=== PATIENT | female | born 1965 | race Caucasian/White ===

== ENCOUNTER 2022-11-06 09:12 | Emergency (ER) | payer OTHER, SELFPAY ==
--- NOTE | ~2022-11-06 | US_ITS ---
EXAMINATION: US venous doppler LE RT DATE: 11/06/2022 10:08 INDICATION: Right calf pain. TECHNIQUE: Grayscale ultrasound images without and with compression and Doppler ultrasound images of the right lower extremity veins were obtained. COMPARISON: None. FINDINGS: The visualized portions of right common femoral vein, profunda (deep) femoral vein, femoral vein, pop liteal vein, peroneal veins, posterior tibial veins, and greater saphenous vein outflow are patent. IMPRESSION: 1. No deep venous thrombosis. Reviewed, dictated and finalized at location A.
[2022-11-06 09:20] VITALS: BP 146/74; PULSE 61; RESP 16; TEMP 36.8; O2SAT 99
[2022-11-06] MEDS: Please add drug allergy info to patient profile. 1 EACH XX (10:42)
[2022-11-06] MEDS: KETOROLAC 30 MG/ML VIAL (*BKC) IM (10:44)
[2022-11-06] MEDS: CYCLOBENZAPRINE HCL 10 MG TABLET PO (10:45)
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
[2022-11-06 12:04] LABS: Alanine Aminotransferase 26 U/L (6-35); Albumin Level 5.1 g/dL (3.5-5.1); Alkaline Phosphatase 61 U/L (38-126); Anion Gap 9 mmol/L (8-16); Aspartate Amino Transferase 26 U/L (14-36); Bilirubin,Total 0.8 mg/dL (0.2-1.3); Blood Urea Nitrogen 22 mg/dL (7-17); Carbon Dioxide 27 mmol/L (22-30); Chloride 99 mmol/L (98-107); Creatine Kinase 75 U/L (30-135); Estimated CRCL calculation 63 ml/min; Estimated Glomerular Filt Rate > 60; Glucose 106 mg/dL (65-110); Potassium 4.1 mmol/L (3.4-5.0); Sodium 135 mmol/L (137-145)
== END 2022-11-06 11:32 | disposition home or self-care (01) ==
PROVIDERS: Emergency Provider Preventive Medicine Aerospace Medicine
DX: M79.661 Pain in right lower leg (principal); M54.31 Sciatica, right side; Z87.828 Personal history of other (healed) physical injury and trauma
CPT/HCPCS: 36415; 80053; 82550; 93971; 96372; 99284; A9270; J1885

== ENCOUNTER 2024-02-18 16:09 | Outpatient (NON) | payer OTHER, SELFPAY ==
[2024-02-18 16:33] LABS: Add Urine Microscopic? NO; Appearance Urine Clear (Clear); Bilirubin Urine Negative (Negative); Blood Urine Negative (Negative); Color Urine Light Yellow (Yellow); Glucose Urine UA Negative (Negative); Ketones Urine Negative (Negative); Leukocyte Esterase Ur Negative LEU/UL (Negative); Nitrate Urine Negative (Negative); Protein Urine Negative (Negative); Specific Grav Ur >= 1.030 (1.010-1.020); Urobilinogen Urine 0.2 mg/dL (0.2-1.0)
== END 2024-02-18 16:10 | disposition home or self-care (01) ==
LOC: CHSLAB 16:10
PROVIDERS: PCP Nurse Practitioner Family; Visit Provider Nurse Practitioner Family
DX: R10.819 Abdominal tenderness, unspecified site (principal)
CPT/HCPCS: 81003

== ENCOUNTER 2024-02-25 07:19 | Outpatient (CLI) | payer OTHER, SELFPAY ==
--- NOTE | ~2024-02-25 | US_ITS ---
US abdomen complete EXAMINATION: US Abdomen Complete INDICATION: Lower abdominal pain PROCEDURE: Realtime High Resolution abdomen ultrasound. COMPARISON: No prior studies for comparison FINDINGS: Gallbladder within normal limits. No gallstones, pericholecystic fluid, gallbladder wall t hickening or biliary dilatation. Common bile duct measures 3 mm. Liver echotexture within normal limits without focal mass. Pancreas within normal limits. Pancreati c tail is obscured by bowel gas. Spleen is unremarkeable. Renal echotexture is within normal limits bilaterally without hydronephrosis, contour deforming mass or renal stone. Right kidney measures 10.2 cm. Left kidney measures 10.3 cm. Visualized aspects of the aorta and IVC are within normal limits. Portal vein is patent. No sonograph ic Gutierrez's sign indicated by the technologist. IMPRESSION: 1: Normal abdominal ultrasound. Reviewed, dictated and finalized at location A. 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
--- NOTE | ~2024-02-25 | US_ITS ---
EXAMINATION: US soft tissue groin RT DATE: 02/25/2024 07:48 INDICATION: Abdominal tenderness, unspecified site. TECHNIQUE: Multiple grayscale and Doppler ultrasound images of the right groin were obtained. COMPARISON: None FINDINGS: There are normal lymph nodes in the right inguinal region. IMPRESSION: 1. No abnormal mass or lymphadenopathy in the patient's area of concern in right inguinal region. 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 No abnormal mass or lymphadenopathy in the patient's area of concern in righ t inguinal region.
== END 2024-02-25 07:20 | disposition home or self-care (01) ==
PROVIDERS: PCP Family Medicine; Visit Provider Nurse Practitioner Family
DX: R19.09 Other intra-abdominal and pelvic swelling, mass and lump (principal); R10.819 Abdominal tenderness, unspecified site
CPT/HCPCS: 76700; 76882

== ENCOUNTER 2024-03-27 14:22 | Outpatient (CLI) | payer OTHER, SELFPAY ==
--- NOTE | ~2024-03-27 | MM_ITS ---
EXAMINATION: MM screening julianne BI w memo HISTORY: Screening TECHNIQUE: Craniocaudal and mediolateral oblique 3-D tomosynthesis images were obtained and synthetic 2-D images were generated. CAD analysis was submitted and interpreted. COMPARISON: Comparison to multiple prior studies sequentially, with oldest reviewed study dated 11/23. BREAST PARENCHYMAL COMPOSITION: Not dense: There are scattered areas of fibroglandular density. FINDINGS: There is no evidence of suspicious mass, calcification, or architectural distortion to sugg est malignancy in either breast. There has been no suspicious interval change. IMPRESSION: 1. No mammographic evidence of malignancy. 2. Recommend routine screening mammography in one year. BI-RADS Category 1: Negative Reviewed, dictated and finalized at location B. 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
--- OUTSIDE RECORDS SUMMARY | 2024-03-27 15:14 | XMS_ITS | Data Portability ---
Author Organization [place] - [employer] , [facility] [place] Address [address] [place] [address] Assessment No assessment recorded. Plan of Treatment Reminders Order Date Submit Date Provider Last Modified By Organization Details Last Modified Time Details Appointments None recorded. Lab None recorded. Referral None recorded. Procedures None recorded. Surgeries None recorded. Imaging None recorded. Medication Orders Augmentin 875 mg-125 mg tablet 2023 024 [id number], [address], [place], [phone], 13:46:44 Patient TargetsNo targets recorded. Patient Instructions Encounter Date Encounter Id Patient Instructions Last Modified By Organization Details Last Modified Time 01/29/2024 [id number] Acute Sinusitis: Care Instructions edahir Not available 01/29/2024 13:46:35 Traveling and Follow-Up: Since you are leaving for [place] soon, ensure you fill the prescription at your [facility] in [place] promptly. If your symptoms persist or worsen during your trip, seek medical attention. Please follow up with us if necessary upon your return. Safe travels! edahir Not available 01/29/2024 13:49:14 Reason for Referral None Reported. Medical Equipment None Reported. Allergies Allergen ID Allergen Name Allergen Category Reaction Reaction Severity Criticality Documentation Date Start Date Code Code System Note Provider Name and Address Organization Details Recorded Time 90706 erythromy kay medicatio n abdominal pain Not available Not available 01/29/2024 4053 [facility] AKILA Perez [address], [place], [address], [facility] 13:44:14 Medications Name Sig Start Date Stop Date Status Note LastModified by Organization Details LastModified Time Augmentin 875 mg-125 mg tablet Take 1 tablet every 12 hours by oral route for 7 days. 024 active Not Available Not Available Not Avai lable Vitals None Recorded Social History None recorded. Functional Status None recorded. Mental Status None recorded. Family History Nothing Reported. Medical History No medical history recorded. Gynecological HistoryNo gynecological history recorded. Obstetrics History GPAL:G 0 P 0 0 0 0 Past Encounters Encounter ID Performer Location Encounter Start Date Encounter Closed Date Diagnosis/Indication Diagnosis SNOMED-CT Code Diagnosis ICD10 Code Diagnosis Note [id number] AKILA Perez [facility] [address] [facility] [place] [address] 01/29/2024 13:40:01 01/29/2024 19:45:05 Acute bacterial sinusitis 89049506 J01.90 MDM- History and examinatio n consistent with acute uncomplica zheng sinusitis. No indication for labs or imaging at this time. No evidence of sepsis, strep pharyngiti s, or pneumonia. Counseled patient/fa kelsea on antibiotic treatment and supportive measures at home. Patient advised to return to clinic or present to ED if symptoms change or worsen. Otherwise follow-up with PCP. This is an audio/vide o visit. Physical examinatio n is limited to visual assessment . Health Concerns Section Related Observation LastModified by Organization Detai ls LastModified Time None Recorded Concern Status LastModified by Organization Details LastModified Time None Recorded Advance Directives Directive None Recorded Payers Encounter Date Sequence Insurance Name Policy Number Policy Nolasco Covered Member ID Nolasco Member ID Guarantor Name 01/29/2024 1 [facility] [id number] Rosey Sorensonkristin [id number] Rosey Blossom 01/29/2024 3 *SELF PAY* [id number] Rosey Blossom [id number] Rosey Sorensonkristin Notes Date Note Type Note Provider Name and Address Organization Details Recorded Time 01/29/2024 text/html Call connected, patient greeted. Patient name, , telephone number, and location verified verbally with the patient. Telemedicine limitations reviewed, answered all questions the patient had about the telehealth interaction, and verbal consent obtained to treat. Clinician attests they are physically located in the following state at the time of visit: [place] The patient also consents to the use of AI scribe technology. CC: Sinus pressure and fatigue HPI: The patient reports the onset of symptoms approximately two weeks ago, following a brief getaway. Initially, they developed a sore throat lasting a couple of days, which resolved on its own. The patient typically experiences a cold following a sore throat, but this did not occur. Instead, they began experiencing sinus pressure on the forehead and face a few days later. The patient traveled to [place] for work, where the warm climate did not exacerbate their symptoms. However, they did experience nasal drainage and recurrent episodes of epistaxis when blowing their nose, likely due to dryness. They applied Vaseline to alleviate nasal dryness, which provided some relief. Upon returning home yesterday, the patient experienced pronounced fatigue and mild nausea attributed to post-nasal drainage. They attempted to manage their symptoms using a neti pot, Tylenol, and ibuprofen, but reported these treatments as ineffective. Despite the symptoms, the patient denies fever and cough. They have been using a humidifier and staying hydrated to manage their condition. No allergies to medications were noted, except for erythromycin, which causes abdominal discomfort. The patient is concerned about their upcoming travel plans to [facility] and is seeking prompt relief from their sinus symptoms. AKILA Perez [address] [facility] [address], [place], [address], [facility] 01/29/2024 13:49:31 OBGyn Episode No OBEpisode recorded.
== END 2024-03-27 14:23 | disposition home or self-care (01) ==
LOC: CHSIMG 14:23
PROVIDERS: PCP Family Medicine; Visit Provider Obstetrics & Gynecology
DX: Z12.31 Encounter for screening mammogram for malignant neoplasm of breast (principal)
CPT/HCPCS: 77063; 77067

== ENCOUNTER 2024-06-09 11:31 | Outpatient (CLI) | payer OTHER, SELFPAY ==
--- NOTE | ~2024-06-09 | CT_ITS ---
CT Scan of the Chest without Contrast: Clinical Indication: Pulmonary nodule Technique: Contiguous sections were acquired throughout the chest without intravenous contrast. Dose reduction technique was used on this scan by utilizing automated exposure control and iterative recon struction technique. The dose-length product (DLP) was 46.67 mGy-cm. Findings: There is no evidence of any significant mediastinal, hilar or axillary lymphadenopathy. The mediastin al soft tissues appear normal. There is no evidence of pleural or pericardial effusion. Calcified right apical granuloma present. There is minimal biapical scarring. 5 mm peripheral left lo wer lobe pulmonary nodule present (axial image 92). Images through the upper abdomen reveal no abnormalities. Impression: 5 mm left lower lobe pulmonary nodule. According to Fleischner study criteria, for a low-risk patient , no further follow-up required. For a high-risk patient, consider 12 month follow-up CT. Reviewed, dictated and finalized at [facility]. Impression: 5 mm left lower lobe pulmonary nodule. According to Fleischner study criteria, for a low-risk patient, no further follow-up required. For a high-risk patient, consider 12 month follow-up CT.
== END 2024-06-09 11:32 | disposition home or self-care (01) ==
LOC: MICIMG 11:36
PROVIDERS: PCP Family Medicine; Visit Provider Internal Medicine Cardiovascular Disease
DX: R91.1 Solitary pulmonary nodule (principal); R93.89 Abnormal findings on diagnostic imaging of other specified body structures
CPT/HCPCS: 71250